=== PATIENT | male | born 1990 | race Caucasian/White ===

== ENCOUNTER 2017-04-02 17:47 | Emergency (ER) | payer OTHER ==
[2017-04-02 18:02] VITALS: BP 146/87; PULSE 70; TEMP 97.8; BMI 25.8
--- NOTE | 2017-04-02 18:03 | PDOC ---
Rapid Medical Evaluation Time Seen by Provider: 04/02/17 17:58 Medical Evaluation: 04/02/17 17:58 I have performed a brief in-person evaluation of this patient. The patient presents with a chief complaint of: adhesive in left eye Pertinent physical exam findings: HEENT: EOM. PERRLA. No scleral injection noted. I have ordered the following: n/a The patient will proceed to the ED for further evaluation. Discharge Disposition - Diagnosis Eye pain Qualifiers: Laterality: left Qualified Code(s): H57.12 - Ocular pain, left eye - Referrals - Patient Instructions - Post Discharge Activity
--- NOTE | 2017-04-02 19:40 | PDOC ---
History of Present Illness - General Chief Complaint: Eye Problem Stated Complaint: EYE INJURY Time Seen by Provider: 04/02/17 17:58 History Source: Patient Exam Limitations: No Limitations - History of Present Illness Initial Comments: 04/02/17 19:36 CHIEF COMPLAINT: High-strength adhesive to left eye HISTORY OF PRESENT ILLNESS: Patient is a 26-year-old male, no significant medical history currently on no medications reports approximately 4 PM today was using a high-strength aerosol adhesive can exploded and he ended up getting some of the adhesive into his left eye. He washed it immediately with an eyewash kit for approximately 15 minutes then again with normal saline for 15 minutes came to emergency department now complaining of foreign body sensation to left eye, irritation. Patient denies however any visual disturbance. Denies any pain just states "I feel like I have sand in my eye. " Safety data sheet reviewed and POison control called, spoke to Gabriella, eye requires flushing for 15 minutes, f/u with ophthalmology. REVIEW OF SYSTEMS: GENERAL/CONSTITUTIONAL: No fever or chills. No weakness. No weight change. HEAD, EYES, EARS, NOSE AND THROAT: No change in vision. Foreign body sensation to left eye no drainage. No redness. No ear pain or discharge. No sore throat. RESPIRATORY: No cough, wheezing, or hemoptysis. SKIN : No rash or easy bruising. NEUROLOGIC: No headache, vertigo, loss of consciousness, or loss of sensation. HEMATOLOGIC/LYMPHATIC: No lymphadenopathy ALLERGIC/IMMUNOLOGIC: No hives or skin allergy. No latex allergy. PHYSICAL EXAM: GENERAL: The patient is awake, alert, and fully oriented, in no acute distress. HEAD: Normal with no signs of trauma. EYES: Pupils equal, round and reactive to light, extraocular movements intact, sclera anicteric, conjunctiva not injected fluorescein staining, no corneal abrasion noted, no foreign body ENT: Ears normal, nares patent, oropharynx clear without exudates. Moist mucous membranes. NECK: Normal range of motion, supple without lymphadenopathy, JVD, or masses. LUNGS: Breath sounds equal, clear to auscultation bilaterally. No wheezes, and no crackles. NEUROLOGICAL: Cranial nerves II through XII grossly intact. Normal speech, normal gait. SKIN: No erythema no facial edema. Warm, Dry, normal turgor, no rashes or lesions noted. 04/02/17 19:53 Past History - Past Medical History Allergies/Adverse Reactions: Allergies Allergy/AdvReac Type Severity Reaction Status Date / Time No Known Allergies Allergy Verified 04/02/17 17:58 Home Medications: Ambulatory Orders Erythromycin 0.5% Eye Ointment [Erythromycin 0.5% Eye Ointment -] 1 applic OS BID #1 tube 04/02/17 COPD: No Other medical history: DENIES. - Suicide/Smoking/Psychosocial Hx Smoking History: Never smoked *Physical Exam - Vital Signs Last Vital Signs Temp Pulse Resp BP Pulse Ox 97.8 F 70 19 146/87 99 04/02/17 17:58 04/02/17 17:58 04/02/17 17:58 04/02/17 17:58 04/02/17 17:58 Medical Decision Making - Medical Decision Making 04/02/17 19:55 A/P: Patient here for body splash to left eye, there is no foreign body no corneal abrasion noted, we have flushed again. There is no visual disturbance, vision is 20/20 after flushing. I have discharged patient home with erythromycin ophthalmic ointment, follow-up with ophthalmology *DC/Admit/Observation/Transfer Diagnosis at time of Disposition: Foreign body, eye Qualifiers: Encounter type: initial encounter Laterality: left Qualified Code(s): T15.92XA - Foreign body on external eye, part unspecified, left eye, initial encounter - Discharge Dispostion Disposition: HOME Condition at time of disposition: Good Admit: No - Prescriptions Prescriptions: Erythromycin 0.5% Eye Ointment [Erythromycin 0.5% Eye Ointment -] 1 applic OS BID #1 tube - Referrals Referrals: Michael Fontaine MD [Staff Physician] - - Patient Instructions Printed Discharge Instructions: DI for Foreign Body in the Eye Additional Instructions: Please Follow up in the office of Dr. Fontaine, tomorrow, if pain or concern. - Post Discharge Activity Forms/Work/School Notes: Back to Work
== END 2017-04-02 20:05 | disposition home or self-care (01) ==
LOC: JERFT 17:47
PROC: 4A07X0Z Measurement of Visual Acuity, External Approach (ICD-10-PCS; principal; 2017-04-02)
PROC: 3E1CX8Z Irrigation of Eye using Irrigating Substance (ICD-10-PCS; 2017-04-02)
DX: T15.82XA Foreign body in other and multiple parts of external eye, left eye, initial encounter (principal); X58.XXXA Exposure to other specified factors, initial encounter; Y93.H3 Activity, building and construction; Y92.89 Other specified places as the place of occurrence of the external cause; Y99.0 Civilian activity done for income or pay
CPT/HCPCS: 99281-25